=== PATIENT | male | born 1955 | race Hispanic/Latino ===

== ENCOUNTER 2025-02-26 10:04 | Emergency (ER) | payer MEDICARE, OTHER ==
[~2025-02-26] VITALS: Ht 167.6 cm; Wt 83.9 kg
--- NOTE | 2025-02-26 10:43 | HMCIMG ---
EXAM: CR right Wrist, 2 View. CLINICAL HISTORY: laceration COMPARISON: None provided. FINDINGS: BONES: Slightly dispaced spiral fracture seen through the midshaft of fifth metacarpal. JOINTS: No dislocation. The carpal bones demonstrate normal alignment. SOFT TISSUES: The soft tissues swelling around thenar aspect of hand. IMPRESSION: Spiral fracture seen through the midshaft of the fifth metacarpal. /Richardson
[2025-02-26] MEDS: LIDOCAINE HCL 1% 20 ML VIAL INJ STA (10:46)
[2025-02-26] MEDS: cefTRIAXone 1G VIAL 1 GM ONE (10:47)
[2025-02-26] MEDS ORDERED: CEPH500B PO (10:59)
--- NOTE | 2025-02-26 10:59 | ERN ---
General Chief Complaint: Laceration/Avulsion Stated Complaint: LACERATION Time Seen by MD: 10:05 Source: patient History of Present Illness Initial Comments Patient is a 69-year-old male coming in complaining of right wrist pain. Per patient he was exchanging a tire cut him in his right wrist. Patient is able to move his fingers without a problem. Allergies: Coded Allergies: No Known Allergies (Unverified Allergy, Unknown, 02/26/25) Past Medical History Past Medical History: No Pertinent History Past Surgical History: None ROS Dictation CONSTITUTIONAL: No chills, no fever, no weakness, no diaphoresis, no malaise. HEAD/FACE: No signs of trauma. EENT: No eye pain, no blurred vision, no tearing, no double vision, no ear pain, no ear discharge, no nose pain, no nasal congestion, no throat pain, no throat swelling, no mouth pain. RESPIRATORY: No cough, no orthopnea, no SOB, no stridor, no wheezing. CARDIOVASCULAR: No chest pain, no edema, no palpitations, no syncope. GASTROINTESTINAL/ABDOMINAL: No abdominal pain, no constipation, no diarrhea, no nausea, no vomiting. GENITOURINARY: No abnormal discharge, no dysuria, no frequent urination, no hematuria. No complaints of pain in the genitals. MUSCULOSKELETAL: No back pain, no gout, no joint pain, no joint swelling, no muscle pain, no muscle stiffness, no neck pain. INTEGUMENTARY: No change in color, no change in hair/nails, no dryness, les ion, no lumps, no rash. NEUROLOGICAL/PSYCH: No anxiety, not depressed, no emotional problem, no headache, no numbness, no pre-existing deficit, no history of seizures, no tremors, no weakness. HEMATOLOGIC/LYMPHATIC: Not anemic, no history of blood clots, no apparent bleeding, no bruising, glands not swollen. All Systems Negative, Except as Noted. Physical Exam Physical Exam Dictation VITAL SIGNS: Reviewed. GENERAL APPEARANCE: Alert, oriented x3, no acute distress, obese. HEAD AND FACE: Non-traumatic. EYES: PERRL, pink conjunctivas, eyelid no trauma, anterior chamber clear. EARS: Pinnas intact and no signs of trauma or erythema. Ear canals clear and no discharge. TMs no erythema. NOSE: No discharge, no bleeding. OROPHARYNX: Mouth normal, teeth no caries, tongue pink. Pharynx clear, no erythema. Tonsils no exudates, no abscesses noted. Mucous membrane moist. NECK: Supple, non-tender, no thyromegaly, no masses, no JVD, no bruits. BREAST: Deferred. CHEST: No tenderness, no crepitus, no paradoxical movement, no retractions. LUNGS: Clear, well-ventilated, symmetric, no rales, no wheezing, no rhonchi, no stridor, good breath sounds bilaterally. HEART: Regular rate, regular rhythm, no murmur, no gallops. VASCULAR: No peripheral edema. ABDOMEN: Soft, positive bowel sounds, nondistended, no guarding, nontender, no rebound, no masses no hepatomegaly, no splenomegaly, no Batista's sign, no hernias. RECTAL: Deferred. GENITAL: Deferred. NEUROLOGICAL: Normal speech, gross motor function intact, gross sensory function intact. MUSCULOSKELETAL: Neck nontender, full range of motion, back nontender, full range of motion. EXTREMITIES: Nontender, full range of motion. SKIN: Color pink, dry, no turgor, no rash, 4 cm laceration in the medial aspect of the right wrist, no abrasions, no contusions. LYMPHATICS: Deferred. Results Laboratory and Microbiology Labs Reviewed?: Yes MDM MDM: Differential diagnosis: Laceration, wrist laceration, wrist fracture, Rationale: Tests considered and ordered secondary to shared decision making include: Previous outside records reviewed: Old ER visits. Risk of complication and/or morbidity or mortality of patient management: None Medications-Per medication reconciliation Need for hospitalization: Patient does not meet criteria for hospitalization. Need for emergency major/minor surgery: No Patient is a 69-year-old male coming in complaining of right wrist injury. On physical exam there is a 4 cm laceration on the medial aspect of the right wrist x-ray did not disclose acute findings. Laceration was repaired using chromic [id number] x8. Good approximation hemostasis obtained. Patient tolerated procedure well we will be discharged in stable condition. ED Course Orders Procedure Category Date Status Time Tetanus,Diphtheria PHA 02/26/25 Complete Tox [Adult] (Diphther 10:30 Ceftriaxone 1g Vial PHA 02/26/25 Complete (Rocephine 1g Inj) 10:30 Wrist 2vws Rt RAD 02/26/25 Resulted 10:08 Acetaminophen 500mg PHA 02/26/25 Complete Tab (Tylenol 500mg T 10:30 Lidocaine Hcl 1% 20ml PHA 02/26/25 Complete Vial (Lidocaine Hc 10:08 Laceration Tray Set CPOE 02/26/25 Transmitted Up (Er) 10:08 Ceftriaxone 1g Vial PHA 02/26/25 Complete (Rocephine 1g Inj) 10:14 Acetaminophen 500mg PHA 02/26/25 Complete Tab (Tylenol 500mg T 10:14 Tetanus,Diphtheria PHA 02/26/25 Complete Tox [Adult] (Diphther 10:14 Current Medications Medications (Trade) Dose Ordered Sig/Nuha Route PRN Reason Start Time Stop Time Status Last Admin Dose Admin Acetaminophen (TYLenol 500MG TAB) 500 mg STK-MED ONCE .ROUTE 02/26/25 10:14 02/26/25 10:14 DC Acetaminophen (TYLenol 500MG TAB) 1,000 mg ONCE ONCE PO 02/26/25 10:30 02/26/25 10:31 DC Ceftriaxone Sodium 1 ml @ As Directed STK-MED ONCE .ROUTE 02/26/25 10:14 02/26/25 10:14 DC Ceftriaxone Sodium (ROCEphine 1G INJ) 1 gm ONCE ONCE IM 02/26/25 10:30 02/26/25 10:31 DC 02/26/25 10:50 Lidocaine HCl (Lidocaine HCl 1% 20ml Vial) 20 ml ONCE STAT INJ 02/26/25 10:08 02/26/25 10:18 DC 02/26/25 10:46 Tetanus/ Diphtheria Toxoids Adsorbed (DiphthERIA-teTANUS TOXOID [ADULT]/ DECAVAC) 0.5 ml ONCE ONCE IM 02/26/25 10:30 02/26/25 10:31 DC 02/26/25 10:49 Tetanus/ Diphtheria Toxoids Adsorbed (DiphthERIA-teTANUS TOXOID [ADULT]/ DECAVAC) 0.5 ml STK-MED ONCE IM 02/26/25 10:14 02/26/25 10:14 DC Vital Signs Date Time Temp Pulse Resp B/P (MAP) Pulse Ox O2 Delivery O2 Flow Rate FiO2 02/26/25 10:05 97.5 98 18 195/64 98 Room Air Laceration/Wound Repair Laceration/Wound Repair : Wound Location: upper extremity Wound Length (cm): 4 Wound's Depth, Shape: superficial Wound Explored: clean Irrigated w/ Saline (ccs): 100 Betadine Prep?: Yes Anesthesia: 1% Lidocaine Volume Anesthetic (ccs): 5 Wound Debrided: minimal Wound Repaired With: sutures Suture Size/Type: 4:0 Number of Sutures: 8 DX & DISP Disposition: Discharge Departure Impression: Primary Impression: Wrist laceration Condition: Stable Scripts Cephalexin Monohydrate (Keflex) 500 Mg Cap 1 CAP PO TID for 10 Days, #30 CAP 0 Refills Prov: ZAIRE DIEGO MD 02/26/25 Additional Instructions: FOLLOW-UP WITH PRIMARY CARE PROVIDER IN 1 TO 2 DAYS. TAKE MEDICATIONS DIRECTED HERE IN THE EMERGENCY ROOM. OKAY TO CONTINUE HOME MEDICATIONS UNLESS OTHERWISE DISCUSSED DURING YOUR VISIT IN THE EMERGENCY ROOM TODAY. RETURN TO YOUR NEAREST EMERGENCY ROOM IF SYMPTOMS WORSEN OR IF THERE IS NO IMPROVEMENT. CALL 911 IF YOU NEED IMMEDIATE ASSISTANCE. TAKE TYLENOL [id number] NEEDED AND IF NO CONTRAINDICATIONS ARE PRESENT. INCREASE ORAL HYDRATION. A WOUND CULTURE OR URINE CULTURE WAS ORDERED HERE IN THE EMERGENCY ROOM DEPARTMENT PLEASE FOLLOW-UP WITH PRIMARY CARE PROVIDER AND ADVISE THEM TO GET REPORTS FROM OUR FACILITY. IF YOU HAD ANY SCOTTIE WRAP/SPLINTS THAT WERE APPLIED HERE, PLEASE DO NOT REMOVE THEM UNTIL YOU SEE YOUR PRIMARY CARE OR SPECIALTY. Referrals: Referrals: NONE (PCP) JES [place] MD Time of Disposition: 10:57 ZAIRE DIEGO MD Feb 26, 2025 10:59
[2025-02-26 11:23] LABS: NUCLEATED RED BLOOD CELLS 0.0 % (0.0-0.19); PLATELET COUNT (AUTO) 228 K/uL (130-400); RED BLOOD CELL COUNT(AUTO) 5.44 MIL/uL (4.50-6.20); RED CELL DISTRIBUTION WIDTH 13.2 % (11.0-15.5); WHITE BLOOD COUNT (AUTO) 9.3 K/uL (4.8-10.8)
[2025-02-26 11:30] LABS: CREATININE 1.0 mg/dL (0.5-1.3); GLOMERULAR FILTR. RATE CALC 81.0 mL/min (>90); GLUCOSE,RANDOM 113.0 mg/dL (70-105); SODIUM SERUM 136.0 mmol/L (136-145); UREA NITROGEN, BLOOD 16.0 mg/dL (7-18)
[2025-02-26 11:34] LABS: INR 0.95 (0.85-1.15)
[2025-02-26 11:46] LABS: EOSINOPHILS % (MANUAL) 1 % (1-6); LYMPHOCYTES % (MANUAL) 9 % (22-44); MAN.DIFF COMMENT-IMPRESSION MANUAL DIFFERENTIAL; MONOCYTES % (MANUAL) 7 % (2-9); PLATELET MORPHOLOGY COMMENT ADEQUATE; REACTIVE LYMPHOCYTES 4 % (0-0); SEGMENTED NEUTROPHILS % 79 % (40-70)
[2025-02-26 12:58] VITALS: BP 150/73; PULSE 84; RESP 16; TEMP 98; O2SAT 98
--- NOTE | 2025-02-26 12:59 | NUR ---
APPLIED GUTTER SPLINT WITH SLING TO RUE. GOOD PMS.
== END 2025-02-26 13:01 | disposition home or self-care (01) ==
LOC: EDH 10:04
DX: S62.326A Displaced fracture of shaft of fifth metacarpal bone, right hand, initial encounter for closed fracture (principal); S61.511A Laceration without foreign body of right wrist, initial encounter; W22.8XXA Striking against or struck by other objects, initial encounter; Y93.89 Activity, other specified; Y92.89 Other specified places as the place of occurrence of the external cause; Y99.0 Civilian activity done for income or pay
CPT/HCPCS: 99284; 80048; 85025; 85610; 36415; 90714; 73100; 90471; 29125; 12002; 96372; J0696